=== PATIENT | female | born 1980 | race Caucasian/White ===

== ENCOUNTER → 2018-10-18 | Outpatient (REF) | payer OTHER ==
[~2018-10-18] MED LIST: ACYC1CAP8 PO; ANUS25SU TOP; COLA50CA3 PO; IBUP600T26 PO; MAPA500T17 PO; MILK10SU PO; PRENTAB74 PO
[2018-10-20 14:09] LABS: HPV HYBRID CAPTURE II Negative (Negative)
== END ==
LOC: M LAB REF 13:19
PROVIDERS: ATTEND Advanced Practice Midwife
DX: Z12.4 Encounter for screening for malignant neoplasm of cervix (principal)

== ENCOUNTER → 2019-02-22 | Outpatient (REF) | payer OTHER ==
[2019-02-22 14:57] LABS: CHLAMYDIA DNA AMPLIFICATION NEGATIVE (NEGATIVE); GC DNA AMPLIFICATION NEGATIVE (NEGATIVE)
== END ==
LOC: M LAB REF 13:09
PROVIDERS: ATTEND Advanced Practice Midwife
DX: R10.2 Pelvic and perineal pain (principal)

== ENCOUNTER → 2019-11-27 | Outpatient (CLI) | payer OTHER ==
[~2019-11-27] MED LIST changes: +ACYC1CAP20 PO; +FLON1SPR NARES; +MULTCAP PO
== END ==
LOC: M LABSMTC 08:51
PROVIDERS: ATTEND Anesthesiology
DX: Z01.818 Encounter for other preprocedural examination (principal); Z11.59 Encounter for screening for other viral diseases; Z20.828 Contact with and (suspected) exposure to other viral communicable diseases
CPT/HCPCS: C9803; U0003

== ENCOUNTER → 2020-06-09 | Outpatient (CLI) | payer OTHER ==
--- NOTE | 2020-06-09 15:21 | REP ---
INDICATION: LOW BACK PAIN. COMPARISON: None. TECHNIQUE: AP and lateral views as requested. FINDINGS: Lumbar vertebral body heights are preserved and alignment is normal. Disc spaces are maintained. Pedicles and posterior elements are intact. There is no evidence of spondylolysis or spondylolisthesis. The sacrum is unremarkable. There is sclerosis on either side of the SI joints, predominantly the iliac side. Question sacroiliitis changes. Bowel gas pattern is unremarkable. No other abnormality. IMPRESSION: Sclerotic changes associated with the SI joints bilaterally question chronic sacroiliitis changes. Otherwise negative. <Electronically signed by Remi Burnette > 06/09/20 [id number]
== END ==
LOC: M RAD 14:30
PROVIDERS: ATTEND Physician Assistant
DX: M54.5 Low back pain (principal)

== ENCOUNTER → 2020-12-22 | Outpatient (CLI) | payer OTHER ==
[2020-12-22 14:57] LABS: HCG, SERUM QUALITATIVE NEGATIVE (NEGATIVE)
[2020-12-22 15:05] LABS: FREE T4 0.99 NG/DL (0.76-1.46); THYROID STIMULATING HORMONE 0.605 uIU/ML (0.358-3.740)
== END ==
LOC: M LAB 13:46
PROVIDERS: ATTEND Advanced Practice Midwife
DX: N92.6 Irregular menstruation, unspecified (principal)

== ENCOUNTER → 2021-01-02 | Outpatient (CLI) | payer OTHER ==
--- NOTE | 2021-01-02 12:40 | REP ---
INDICATION: N92.6 IRREG MENSES COMPARISON: 02/23/2019 TECHNIQUE: Transabdominal pelvic ultrasound followed by transvaginal examination for better evaluation of the endometrium and adnexa with color Doppler evaluation of the ovaries. FINDINGS: Bladder is unremarkable and measures 9.8 x 4.2 x 8.6 cm. Heterogeneous uterus measures 9.3 x 5.1 x 5.6 cm. The endometrial complex measures 10 mm thickness. No discrete uterine or endometrial abnormalities are appreciated. Evaluation of the adnexa is limited by excessive bowel gas. The right ovary is not visualized. The left ovary is normal in appearance and vascularity without torsion measuring 2.9 x 2.2 x 2.7 cm (RI 0.53) and demonstrating multiple normal follicles. No obvious pelvic fluid. IMPRESSION: Relatively normal appearance of the uterus and left ovary. Right ovary not visualized. No pelvic fluid. <Electronically signed by Ricardo Ballard > 01/02/21 [id number]
== END ==
LOC: M WHC 11:30
PROVIDERS: ATTEND Advanced Practice Midwife
DX: N92.6 Irregular menstruation, unspecified (principal)

== ENCOUNTER → 2021-02-18 | Outpatient (CLI) | payer OTHER | LOC: M LABSMTC 11:21 | PROVIDERS: ATTEND Anesthesiology | DX: Z01.812 Encounter for preprocedural laboratory examination (principal); Z20.822 Contact with and (suspected) exposure to COVID-19 ==

== ENCOUNTER 2021-02-22 07:57 | Day surgery (SDC) | payer OTHER ==
[~2021-02-22] VITALS: Ht 157.5 cm; Wt 55.1 kg
[~2021-02-22 07:57] MED LIST changes: +LIDOCAINE 1% MDV 20ML VIAL SQ PRN; +LR 1,000 ML IV ONE
[2021-02-22 08:31] LABS: HEMATOCRIT 39.6 % (36.0-47.0); HEMOGLOBIN 13.9 g/dl (12.0-15.5); MEAN CORPUSCULAR HEMOGLOBIN 33.7 pg (27.0-33.0); MEAN CORPUSCULAR HGB CONC 35.1 g/dl (32.0-36.5); MEAN CORPUSCULAR VOLUME 96.1 fl (80.0-96.0); PLATELET COUNT, AUTOMATED 281 10^3/uL (150-450); RED BLOOD COUNT 4.12 10^6/uL (4.00-5.40); WHITE BLOOD COUNT 5.3 10^3/uL (4.0-10.0)
[2021-02-22] MEDS ORDERED: propofoL 200 MG/20 ML VIAL As Ordered ONE (08:56)
[2021-02-22] MEDS ORDERED: LIDOCAINE 2% 100MG/5ML SDV (FOR ANES.) As Ordered ONE (08:56)
[2021-02-22] MEDS ORDERED: dexameTHASONE 4 MG/ML 1ML VIAL (J1100 PER 1MG) As Ordered ONE (08:56)
[2021-02-22] MEDS ORDERED: KETOROLAC 60MG 2ML VIAL As Ordered ONE (08:56)
[2021-02-22] MEDS ORDERED: ONDANSETRON 4MG/2ML VIAL As Ordered ONE (08:56)
[2021-02-22] MEDS ORDERED: fentaNYL 100 MCG/2 ML INJECTION (J3010) As Ordered ONE (08:56)
[2021-02-22] MEDS ORDERED: MIDAZOLAM INJ 2MG/2ML VIAL (J2250 PER 1MG) As Ordered ONE (08:57)
[2021-02-22] MEDS ORDERED: ACETAMINOPHEN 1000MG 100ML IV BTL (OFIRMEV) (J0131 PER 10MG) As Ordered ONE (09:50)
[2021-02-22] MEDS ORDERED: ONDANSETRON 4MG/2ML VIAL IV PRN (10:15)
[2021-02-22] MEDS ORDERED: HYDROMORPHONE HCL 0.5 MG/ 0.5 ML SYRINGE (J1170 PER 1) IV PRN (10:15)
[2021-02-22] MEDS ORDERED: oxyCODONE 5MG TAB PO PRN ×2 (10:15→10:35)
[2021-02-22] MEDS ORDERED: fentaNYL 100 MCG/2 ML INJECTION (J3010) IV PRN (10:15)
[2021-02-22] MEDS ORDERED: LR 1,000 ML IV SCH ×2 (10:15→10:35)
--- NOTE | 2021-02-22 10:36 | ROOPDOC ---
[facility] Report Of Operation Report of Operation DATE OF PROCEDURE: 02/22/21 PREPROCEDURE DIAGNOSES: menorrhagia POSTPROCEDURE DIAGNOSES: Same. PROCEDURE PERFORMED: hysteroscopy, D&C, NovaSure endometrial ablation SURGEON: Harrisno Polanco MD ANESTHESIA: GETA. ESTIMATED BLOOD LOSS: Approximately 10 mL. COMPLICATIONS: none. FINDINGS: Normal endometrial cavity. SPECIMENS REMOVED: Bilateral fallopian tubes, endometrial curettings PROCEDURE NOTE: A speculum was placed in the vagina. The anterior lip of the cervix was grasped with a tenaculum. The cervix was dilated with tapered dilators. Diagnostic hysteroscope using normal saline as the distention media was placed through the internal os. Visualization of the endometrial cavity revealed the findings noted above. The hysteroscope was removed. Sharp curettage was performed. The NovaSure device was assembled and found to be in working order. The device was inserted through the internal os and opened. Total cavity length was 4.0 cm. Total cavity width was 4.4 cm. Power setting was 97 W. A successful cavity assessment was performed. The device was activated. Total coagulation time was 1 minute 40 seconds. The device was removed. The hysteroscope was placed back through the internal os. An excellent coagulation effect was noted throughout the endometrium. All instruments were removed. Sponge, instrument, and needle counts correct. HARRISON POLANCO MD Feb 22, 2021 10:36
[2021-02-22 10:55] VITALS: BP 119/69
[2021-02-22] MEDS ORDERED: OXYC1TAB23 PO (11:02)
== END 2021-02-22 12:05 | disposition home or self-care (01) ==
LOC: M SDC 07:57
PROVIDERS: ATTEND Specialist
DX: N92.4 Excessive bleeding in the premenopausal period (principal); K21.9 Gastro-esophageal reflux disease without esophagitis; A60.00 Herpesviral infection of urogenital system, unspecified
CPT/HCPCS: 36415; 58563; 81025; 85027; 88305; J0131; J1100; J1885; J2250; J2405; J3010

== ENCOUNTER → 2023-08-19 | Outpatient (REF) | payer OTHER ==
[~2023-08-19] MED LIST changes: -LIDOCAINE 1% MDV 20ML VIAL SQ PRN; -LR 1,000 ML IV ONE; +OXYC1TAB23 PO
== END ==
LOC: M SFHCWAGY 15:13
PROVIDERS: ATTEND Specialist
DX: Z01.419 Encounter for gynecological examination (general) (routine) without abnormal findings (principal); Z77.9 Other contact with and (suspected) exposures hazardous to health

== ENCOUNTER → 2023-09-03 | Outpatient (CLI) | payer OTHER | LOC: M WHC 16:27 | PROVIDERS: ATTEND Specialist | DX: Z12.31 Encounter for screening mammogram for malignant neoplasm of breast (principal); R92.333 Mammographic heterogeneous density, bilateral breasts; R92.8 Other abnormal and inconclusive findings on diagnostic imaging of breast ==

== ENCOUNTER → 2023-10-07 | Outpatient (CLI) | payer OTHER | LOC: M WHC 14:32 | PROVIDERS: ATTEND Specialist | DX: Z12.31 Encounter for screening mammogram for malignant neoplasm of breast (principal) ==

== ENCOUNTER → 2024-01-12 | Outpatient (REF) | payer OTHER ==
[2024-01-12 19:59] LABS: Trichomonas vaginalis (AMP) NOT DETECTED (NEGATIVE)
[2024-01-12 20:23] LABS: GC DNA AMPLIFICATION NEGATIVE (NEGATIVE)
== END ==
LOC: M SFHCWAGY 17:09
PROVIDERS: ATTEND Nurse Practitioner Family
DX: Z11.3 Encounter for screening for infections with a predominantly sexual mode of transmission (principal); Z72.51 High risk heterosexual behavior

== ENCOUNTER → 2024-02-27 | Outpatient (CLI) | payer OTHER ==
[2024-02-27 10:52] LABS: BASO # 0.1 10^3/uL (0.0-0.2); BASO % 0.9 % (0.0-1.0); EOS # 0.2 10^3/uL (0.0-0.5); EOS % 4.1 % (0.0-3.0); HEMATOCRIT 41.5 % (36.0-47.0); HEMOGLOBIN 14.6 g/dl (12.0-15.5); LYMPH # 1.8 10^3/uL (1.5-5.0); MEAN CORPUSCULAR HEMOGLOBIN 34.5 pg (27.0-33.0); MEAN CORPUSCULAR HGB CONC 35.2 g/dl (32.0-36.5); MEAN CORPUSCULAR VOLUME 98.1 fl (80.0-96.0); MONO # 0.4 10^3/uL (0.0-0.8); NEUTROPHILS # 2.9 10^3/uL (1.5-8.5); NEUTROPHILS % 53.8 % (36.0-66.0); PLATELET COUNT, AUTOMATED 244 10^3/uL (150-450); RED BLOOD COUNT 4.23 10^6/uL (4.00-5.40); WHITE BLOOD COUNT 5.4 10^3/uL (4.0-10.0)
[2024-02-27 11:18] LABS: ALBUMIN 3.9 G/DL (3.2-5.2); ALKALINE PHOSPHATASE 55 U/L (46-116); ALT/SGPT 18 U/L (7.0-40); AST/SGOT 9 U/L (<34); BILIRUBIN,TOTAL 0.7 MG/DL (0.3-1.2); BLOOD UREA NITROGEN 14 MG/DL (9-23); CALCIUM LEVEL 10.1 MG/DL (8.5-10.1); CARBON DIOXIDE LEVEL 31 MMOL/L (20-31); CHLORIDE LEVEL 111 MMOL/L (98-107); CHOLESTEROL LEVEL 187 MG/DL (<200); CHOLESTEROL RISK RATIO 2.84 (<5); CREATININE FOR GFR 0.67 MG/DL (0.55-1.30); GLOMERULAR FILTRATION RATE > 60.0 (>58); GLUCOSE, FASTING 78 MG/DL (60-100); HDL CHOLESTEROL 65.7 MG/DL (>40); LDL CHOLESTEROL 110.5 MG/DL (<100); NON-HDL-C 121.3 MG/DL; POTASSIUM SERUM 4.2 MMOL/L (3.5-5.1); SODIUM LEVEL 141 MMOL/L (136-145); TOTAL PROTEIN 7.1 G/DL (5.7-8.2); TRIGLYCERIDES LEVEL 54 MG/DL (<150)
[2024-02-27 11:24] LABS: FREE T4 1.39 NG/DL (0.89-1.76); THYROID STIMULATING HORMONE 0.555 uIU/ML (0.55-4.78)
== END ==
LOC: M LAB 08:35
PROVIDERS: ATTEND Nurse Practitioner Family
DX: R53.83 Other fatigue (principal); Z13.220 Encounter for screening for lipoid disorders

== ENCOUNTER → 2024-12-18 | Outpatient (CLI) | payer OTHER | LOC: M LAB 08:27 | PROVIDERS: ATTEND Internal Medicine Cardiovascular Disease | DX: Z13.6 Encounter for screening for cardiovascular disorders (principal); Z82.49 Family history of ischemic heart disease and other diseases of the circulatory system ==

== ENCOUNTER → 2025-02-14 | Outpatient (REF) | payer OTHER | LOC: M SFHCWAGY 17:59 | PROVIDERS: ATTEND Specialist | DX: R87.610 Atypical squamous cells of undetermined significance on cytologic smear of cervix (ASC-US) (principal) ==